=== PATIENT | male | born 1980 | race Caucasian/White ===

== ENCOUNTER → 2019-03-10 | Outpatient (CLI) | payer OTHER ==
--- NOTE | 2019-03-10 10:48 | US ---
EXAMINATION TYPE: US scrotum with doppler. Grayscale and color Doppler Duplex imaging performed of chelsy pritchett scrotum. DATE OF EXAM: 03/10/2019 COMPARISON: 10/05/2013 CLINICAL HISTORY: N50.9 Disorder of male genital organs, unspecified. Rt teste palpable- patient stat es it has been getting smaller. EXAM MEASUREMENTS: TESTICLES: Right Testicle: 4.3 x 3.0 x 2.6 cm Left Testicle: 3.7 x 2.7 x 2.5 cm EPIDIDYMIS HEAD: Right Epididymis: 1.0 x 1.6 x 1.2 cm Left Epididymis: 1.1 x 1.2 x 0.8 cm Doppler performed to assess for testicular vascularity; good bilateral color flow and waveforms are s een. There is no evidence of testicular torsion. Presence of hydroceles: Bilateral Presence of varicoceles: no Bilateral epididymal cysts seen in head. Right - 0.5 x 0.4 x 0.4 cm. Left - 0.4 x 0.4 x 0.4 cm. IMPRESSION: 1. Redemonstration of bilateral simple appearing benign epididymal cysts as seen on the exam of 2013. 2. Trace bilateral hydroceles also appearing simple.
== END ==
LOC: RADUSWWP 08:53
PROVIDERS: ATTEND Family Medicine
DX: N50.3 Cyst of epididymis (principal)
CPT/HCPCS: 76870; 93975

== ENCOUNTER 2019-03-16 08:09 | Day surgery (SDC) | payer OTHER ==
[2019-03-14 10:54] VITALS: BMI 29.8
[~2019-03-16 08:09] MED LIST: LIDOCAINE 1% 20 ML VIAL (10MG/ML) FOR IV START INTRADERMA PRN
[2019-03-16 08:24] VITALS: TEMP 97.4
[2019-03-16] MEDS: LACTATED RINGERS 1,000 ML IV SCH ×2 (08:30→09:00)
[2019-03-16] MEDS ORDERED: MIDAZOLAM 2 MG/2 ML VIAL ONE (09:02)
[2019-03-16] MEDS ORDERED: PROPOFOL 10 MG/ML 20 ML VIAL IV ONE (09:02)
[2019-03-16] MEDS ORDERED: fentaNYL (PF) 50 MCG/ML 2 ML AMP ONE (09:02)
--- NOTE | 2019-03-16 09:29 | P.PCN ---
Date of Procedure: 03/16/19 Description of Procedure: BRIEF HISTORY: 38-year-old male who presents for outpatient EGD. The patient reports intermittent episodes of dysphagia occurring over the past year. He reports that when episodes occur usually drink a lot of water to help the food move through. On occasion he has been unable to have a walker improve his symptoms of a sensation of food at the sternal notch and reports that he is required Heimlich maneuver on occasion secondary to this. He denies any reflux, morning nausea or globus sensation. He does report seasonal ALLERGIES, but denies history of asthma. PROCEDURE PERFORMED: Esophagogastroduodenoscopy with biopsy. PREOPERATIVE DIAGNOSIS: Esophageal dysphagia. ESTIMATED BLOOD LOSS: Minimal. IV sedation per anesthesia. PROCEDURE: After informed consent was obtained, the patient was brought into the endoscopy unit. IV sedation was administered by Anesthesia under continuous monitoring. Initially the Olympus GIF-190 video endoscope was inserted into the mouth. Esophagus intubated without any difficulty. It was gradually advanced into the stomach and duodenum and carefully examined. The bulb and the second part of the duodenum appeared normal, with biopsies at. The scope at this time was withdrawn to the stomach, adequately insufflated with air, and upon careful examination, mucosa of the antrum, body, cardia and the fundus appeared grossly normal except for some mild scattered erythema in the antrum and body suggestive of mild gastritis with biopsies taken. A small hiatal hernia was noted. The scope was then withdrawn into the esophagus. The GE junction was located at 43 cm from the incisors with biopsies. The esophagus appeared normal, with mid esophageal biopsies taken in the setting of esophageal dysphagia. There were no erosions or ulcerations seen and the patient tolerated the procedure well. IMPRESSION: 1. Mild gastritis antrum and body, biopsied. 2. Duodenal biopsies. GE junction biopsies. Mid esophageal biopsies. RECOMMENDATIONS: The findings of this examination were discussed with the patient and his . Await pathology from biopsies. Further recommendations pending findings from biopsies.
[2019-03-16 10:10] VITALS: BP 127/82; PULSE 57; RESP 16
== END 2019-03-16 10:21 | disposition home or self-care (01) ==
LOC: ORWHC2ENDO 08:09
PROVIDERS: ATTEND Internal Medicine
DX: K29.50 Unspecified chronic gastritis without bleeding (principal); K20.9 Esophagitis, unspecified; K44.9 Diaphragmatic hernia without obstruction or gangrene; Z88.0 Allergy status to penicillin; Z88.5 Allergy status to narcotic agent
CPT/HCPCS: 88305; 43239; J2250; J3010; J2704

== ENCOUNTER 2019-10-22 14:45 | Emergency (ER) | payer OTHER ==
[2019-10-22 14:53] VITALS: PULSE 77; RESP 18; TEMP 98.3
--- NOTE | 2019-10-22 15:46 | ED ---
Anxiety HPI - General Chief Complaint: Anxiety Stated Complaint: Anxiety Time Seen by Provider: 10/22/19 14:53 Source: patient Mode of arrival: EMS - History of Present Illness Initial Comments: Patient is a 39-year-old male presenting to emergency Department with chief complaint of a panic attack. Patient states he's had occasional panic attacks over the last 10 years. Patient states this panic attack is not any different from his other ones. However, he states over the last month his developed 5 which is not typical for him. Denies any specific triggers for acute anxiety attacks. At this time, the patient is not complaining of anything. States the most recent panic attack occurred earlier today that lasted for approximately 8 minutes. Patient reports immediately ran to his blood pressure cough which gradually raise his blood pressure which exacerbated his anxiety. Patient does not take any medication for his anxiety. No history of depression or anxiety. She states she is healthy overall. Not a smoker. No history of hypertension or hypercholesterolemia. Patient had a previous cardiac workup due to the anxiety which was unremarkable. - Related Data Home Medications: Home Medications Medication Instructions Recorded Confirmed No Known Home Medications 03/14/19 03/16/19 Allergies/Adverse Reactions: Allergies Allergy/AdvReac Type Severity Reaction Status Date / Time Penicillins Allergy Rash/Hives Verified 10/22/19 14:48 Review of Systems ROS Statement: Those systems with pertinent positive or pertinent negative responses have been documented in the HPI. ROS Other: All systems not noted in ROS Statement are negative. Past Medical History Additional Past Medical History / Comment(s): states "freq chokes on food",states "b/p runs high sometimes" History of Any Multi-Drug Resistant Organisms: None Reported Past Surgical History: Orthopedic Surgery Additional Past Surgical History / Comment(s): rt shoulder,knee procedure,EGD Past Anesthesia/Blood Transfusion Reactions: No Reported Reaction Past Psychological History: No Psychological Hx Reported Smoking Status: Former smoker Past Alcohol Use History: None Reported, Daily Past Drug Use History: Marijuana - Past Family History Mother Family Medical History: No Reported History General Exam Limitations: no limitations General appearance: alert, in no apparent distress Head exam: Present: atraumatic, normocephalic, normal inspection Eye exam: Present: normal appearance, PERRL Pupils: Present: normal accommodation ENT exam: Present: normal exam, mucous membranes moist Neck exam: Present: normal inspection, full ROM Respiratory exam: Present: normal lung sounds bilaterally Cardiovascular Exam: Present: regular rate, normal rhythm, normal heart sounds Extremities exam: Present: normal inspection, full ROM Back exam: Present: normal inspection, full ROM Neurological exam: Present: alert, oriented X3, normal gait Psychiatric exam: Present: normal affect, normal mood Skin exam: Present: warm, dry, intact, normal color Course Vital Signs 10/22/19 14:48 Temperature 98.3 F Pulse Rate 77 Respiratory 18 Rate Blood Pressure 153/108 O2 Sat by Pulse 98 Oximetry Medical Decision Making - Medical Decision Making patient a 39-year-old male presenting to emergency Department with a chief complaint of acute anxiety. Patient has no history of anxiety or depression. Patient has had panic attacks before and this feels exactly the same, however over the last month he has had 5 of them. Patient to previous full cardiac workup because of the anxiety which was unremarkable. Currently patient has no complaints. Physical examination is unremarkable. I offered patient appears to evaluation, he declined. I offered him angiolytics, he declined. States that he would rather speak with his primary care about this. Strict return para meters were thoroughly discussed with patient was understanding and agreeable. QUESTIONS answered. Case discussed with physician. Disposition Clinical Impression: Acute anxiety Disposition: HOME SELF-CARE Condition: Stable Instructions (If sedation given, give patient instructions): Generalized Anxiety Disorder (ED) Additional Instructions: Follow-up with primary care. Return to emergency department if symptoms worsen. Is patient prescribed a controlled substance at d/c from ED?: No Referrals: Niurka Amador MD [Primary Care Provider] - 1-2 days Time of Disposition: 15:46
[2019-10-22 16:00] VITALS: BP 148/95
== END 2019-10-22 15:55 | disposition home or self-care (01) ==
LOC: EC 14:45
DX: F41.9 Anxiety disorder, unspecified (principal); Z88.0 Allergy status to penicillin; Z87.891 Personal history of nicotine dependence
CPT/HCPCS: 99283

== ENCOUNTER → 2020-10-18 | Outpatient (CLI) | payer OTHER ==
--- NOTE | 2020-10-18 12:09 | MR ---
EXAMINATION TYPE: MR shoulder LT wo con DATE OF EXAM: 10/18/2020 COMPARISON: None HISTORY: Lt shoulder pain TECHNIQUE: Multiplanar, multisequence imaging of the shoulder is performed without contrast. FINDINGS: Rotator Cuff: There is some increased signal within the rotator cuff which is mildly thickened. Acromioclavicular Joint: Some arthropathy changes present causing mass effect on the musculotendinous junction of supraspinatus Glenohumeral Joint: Intact Labrum: The labrum appears grossly intact given limitation of non-arthrogram study, suspect a sublabr al foramen is present. Biceps Tendon: The long head of biceps is in normal location within bicipital groove. T2 bright focus present along the long head of the biceps tendon on axial image #7 measures 4 mm and shows a questio nable mass effect may represent fluid, small ganglion cyst is not excluded. Bone marrow signal: No focal abnormal marrow signal is appreciated. Other: There is some fluid signal present in the subacromial subdeltoid bursa. IMPRESSION: No evident rotator cuff tear, some tendinosis is suspected. Indeterminate signal along the long head of biceps tendon as described. Acromioclavicular joint arthropathy.
== END | disposition home or self-care (01) ==
LOC: RADMRIMAIN 08:39
DX: R93.7 Abnormal findings on diagnostic imaging of other parts of musculoskeletal system (principal); M12.812 Other specific arthropathies, not elsewhere classified, left shoulder

== ENCOUNTER 2023-04-01 22:36 | Emergency (ER) | payer OTHER ==
[2023-04-01 22:53] VITALS: RESP 16
[2023-04-02] MEDS ORDERED: methylPREDNISolone SOD SUCCI 125 MG/2 ML VIAL IM ONE (01:27)
--- NOTE | 2023-04-02 01:30 | ED ---
Extremity Problem HPI - General Chief complaint: Extremity Problem,Nontraumatic Stated complaint: Gout Time Seen by Provider: 04/02/23 00:56 Source: patient Mode of arrival: ambulatory Limitations: no limitations - History of Present Illness Initial comments: 42-year-old male with a past medical history significant for gout presents to ED with a chief complaint of gout. Patient states that he has a Flare of his left first toe. States that he saw his wiring inspector today who instructed him to take 2 of colchicine. Despite this has not noticed any improvement. Also notes recent use of ibuprofen. Despite ibuprofen use notes still continuous pain. Denies fever. No other complaints. - Related Data Previous Rx's Medication Instructions Recorded Cyclobenzaprine [Flexeril] 10 mg PO HS PRN #10 tab 10/20/22 methylPREDNISolone Dose Pack 4 mg PO DIRECTED #21 tab 04/02/23 [Medrol Dose Pack] Allergies Allergy/AdvReac Type Severity Reaction Status Date / Time codeine Allergy Nausea & Verified 04/01/23 22:47 Vomiting Penicillins Allergy Rash/Hives Verified 04/01/23 22:47 Review of Systems ROS Statement: Those systems with pertinent positive or pertinent negative responses have been documented in the HPI. ROS Other: All systems not noted in ROS Statement are negative. Past Medical History Additional Past Medical History / Comment(s): states "freq chokes on food",states "b/p runs high sometimes" History of Any Multi-Drug Resistant Organisms: None Reported Past Surgical History: Orthopedic Surgery Additional Past Surgical History / Comment(s): rt shoulder,knee procedure,EGD Past Anesthesia/Blood Transfusion Reactions: No Reported Reaction Past Psychological History: No Psychological Hx Reported Smoking Status: Never smoker Past Alcohol Use History: Occasional Past Drug Use History: Marijuana - Past Family History Mother Family Medical History: No Reported History General Exam Limitations: no limitations General appearance: alert, in no apparent distress Respiratory exam: Present: normal lung sounds bilaterally Cardiovascular Exam: Present: regular rate, normal rhythm GI/Abdominal exam: Present: soft Extremities exam: Present: other (Proximal to left first MTP warmth, erythema, swelling without tophus.) Neurological exam: Present: alert, oriented X3 Skin exam: Present: warm, dry Course Vital Signs 04/01/23 22:48 Temperature 97.6 F Pulse Rate 70 Respiratory 16 Rate Blood Pressure 165/89 O2 Sat by Pulse 98 Oximetry Medical Decision Making - Medical Decision Making Was pt. sent in by a medical professional or institution (ANSELMO Lopez, INSURANCE ACCOUNT ASSISTANT, urgent care, hospital, or assisted...) When possible be specific @ -No Did you speak to anyone other than the patient for history (EMS, parent, family, police, friend...)? What history was obtained from this source @ -No Did you review nursing and triage notes (agree or disagree)? Why? @ -I reviewed and agree with nursing and triage notes Were old charts reviewed (outside hosp., previous admission, EMS record, old EKG, old radiological studies, urgent care reports/EKG's, assisted records)? Report findings @ -No old charts were reviewed Differential Diagnosis (chest pain, altered mental status, abdominal pain women, abdominal pain men, vaginal bleeding, weakness, fever, dyspnea, syncope, headache, dizziness, GI bleed, back pain, seizure, CVA, palpatations, mental health, musculoskeletal)? @ -Gout, pseudogout, cellulitis. This is not meant to be an all-inclusive list. EKG interpreted by me (3pts min.). @ -None X-rays interpreted by me (1pt min.). @ -None done CT interpreted by me (1pt min.). @ -None done U/S interpreted by me (1pt. min.). @ -None done What testing was considered but not performed or refused? (CT, X-rays, U/S, labs)? Why? @ -None What meds were considered but not given or refused? Why? @ -None Did you discuss the management of the patient with other professionals (professionals i.e. ANSELMO Lopez, INSURANCE ACCOUNT ASSISTANT, lab, RT, psych nurse, social media marketing specialist, gate services supervisor, teacher, commanding officer motorized squad, case management social worker)? Give summary @ -No Was smoking cessation discussed for >3mins.? @ -No Was critical care preformed (if so, how long)? @ -No Were there social determinants of health that impacted care today? How? (Homelessness, low income, unemployed, alcoholism, drug addiction, transportation, low edu. Level, literacy, decrease access to med. care, group home, rehab)? @ -No Was there de-escalation of care discussed even if they declined (Discuss DNR or withdrawal of care, Hospice)? DNR status @ -No What co-morbidities impacted this encounter? (DM, HTN, Smoking, COPD, CAD, Cancer, CVA, ARF, Chemo, Hep., AIDS, mental health diagnosis, sleep apnea, morbid obesity)? @ -None Was patient admitted / discharged? Hospital course, mention meds given and route, prescriptions, significant lab abnormalities, going to OR and other pertinent info. @ -Discharge. Exam consistent with gout. Patient afebrile. Does not appear to be cellulitis. Provided Solu-Medrol injection here. Charged in stable condition. Provided medrol dose pack. Discussed return precautions with patient who verbalizes agreement. Undiagnosed new problem with uncertain prognosis? @ -No Drug Therapy requiring intensive monitoring for toxicity (Heparin, Nitro, Insulin, Cardizem)? @ -No Were any procedures done? @ -No Diagnosis/symptom? @ -Gout Acute, or Chronic, or Acute on Chronic? @ -Acute on chronic Uncomplicated (without systemic symptoms) or Complicated (systemic symptoms)? @ -Uncomplicated Side effects of treatment? @ -No Exacerbation, Progression, or Severe Exacerbation? @ -No Poses a threat to life or bodily function? How? (Chest pain, [place], [place], pneumonia, PE, COPD, DKA, ARF, appy, cholecystitis, CVA, Diverticulitis, Homicidal, Suicidal, threat to staff... and all critical care pts) @ -No Disposition Clinical Impression: Gout Disposition: HOME SELF-CARE Condition: Good Instructions (If sedation given, give patient instructions): Low Purine Diet (ED), Gout (ED) Prescriptions: methylPREDNISolone Dose Pack [Medrol Dose Pack] 4 mg PO DIRECTED #21 tab Is patient prescribed a controlled substance at d/c from ED?: No Referrals: Niurka Amador MD [Primary Care Provider] - 1-2 days Time of Disposition: 01:34
[2023-04-02 01:52] VITALS: BP 156/83; PULSE 82; TEMP 98.1
== END 2023-04-02 01:51 | disposition home or self-care (01) ==
LOC: EC 22:36
DX: M10.9 Gout, unspecified (principal); F12.90 Cannabis use, unspecified, uncomplicated; Z88.5 Allergy status to narcotic agent; Z88.0 Allergy status to penicillin
CPT/HCPCS: 99283; 96372; J2930

== ENCOUNTER → 2023-08-02 | Outpatient (CLI) | payer OTHER ==
--- NOTE | 2023-08-02 07:52 | CT ---
EXAMINATION TYPE: CT heart w calcium score DATE OF EXAM: 08/02/2023 COMPARISON: None HISTORY: Screening for cardiovascular disorder. 213.9 CT DLP: 98.9 mGycm Automated exposure control for dose reduction was used. CT CALCIUM SCORING Coronary calcium is a marker for plaque (fatty deposits) in a blood vessel or atherosclerosis (harden ing of the arteries). The presence and amount of calcium detected in a coronary artery by the CT sca n, indicates the presence and amount of atherosclerotic plaque. These calcium deposits appear years before the development of heart disease symptoms such as chest pain and shortness of breath. A calcium score is computed for each of the coronary arteries based upon the volume and density of th e calcium deposits. This can be referred to as your calcified plaque burden. It does not correspond directly to the percentage of narrowing in the artery but does correlate with the severity of the un derlying coronary atherosclerosis. PROCEDURE TECHNIQUE - Prospective Gating was used. Slice thickness: 3mm. Density threshold (HU): 130, Pixel threshold: 3, Algorithm: discrete. RESULTS Region: LM Calcium Score ([place]): 0 Volume (mm3): 0 Mass (g): 0 Region: RCA Calcium Score ([place]): 0.44 Volume (mm3): 1.31 Mass (g): 0.44 Region: LAD Calcium Score ([place]): 0 Volume (mm3): 0 Mass (g): 0 Region: CX Calcium Score ([place]): 0 Volume (mm3): 0 Mass (g): 0 Region: PDA Calcium Score ([place]): 0 Volume (mm3): 0 Mass (g): 0 Total: Calcium Score ([place]): 0.44 Volume (mm3): 1.31 Mass (g): 0.44 TOTAL CALCIUM SCORE: 0.44 IMPRESSION: Calcium Score: 0.44 Implication: Minimal identifiable plaque. Risk of Coronary Artery Disease: Very unlikely, less than 10%. CALCIUM SCORE IMPLICATION RISK OF C ORONARY ARTERY DISEASE 0 No identifiable plaque Very low, generally less than 5% 1-10 Minimal identifiable plaque Very unlikely, less than 10% 11-100 Definite, at least mild atherosclerotic plaque Mild or m inimal coronary narrowings likely 101-400 Definite, at least moderate atherosclerotic plaque Mild coronary ar manuel disease highly likely, significant narrowing possible 401 or Higher Extensive atherosclerotic plaque High lik elihood of at least one significant coronary narrowing
== END | disposition home or self-care (01) ==
LOC: RADCTMAIN 06:58
PROVIDERS: ATTEND Family Medicine
DX: Z13.6 Encounter for screening for cardiovascular disorders (principal); I25.10 Atherosclerotic heart disease of native coronary artery without angina pectoris
CPT/HCPCS: 75571

== ENCOUNTER 2024-01-23 21:36 | Emergency (ER) | payer OTHER ==
[2024-01-23] MEDS: FAMOTIDINE 20 MG/2 ML VIAL IV STA (21:58)
[2024-01-23] MEDS: diphenhydrAMINE 50 MG/ML 1 ML VIAL IVP STA (21:59)
[2024-01-23] MEDS: DIPH,PERTUS(ACELL)TETVAC-LF 0.5 ML VIAL IM ONE (22:00)
[2024-01-23] MEDS: SODIUM CHLORIDE 0.9% 1,000 ML IV STA (22:01)
[2024-01-23] MEDS: methylPREDNISolone SOD SUCCI 125 MG/2 ML VIAL IV STA (22:07)
--- NOTE | 2024-01-23 22:11 | ED ---
General Adult HPI - General Chief complaint: Syncope Stated complaint: Syncope Time Seen by Provider: 01/23/24 21:41 Source: patient, family, EMS, RN notes reviewed Mode of arrival: EMS - History of Present Illness Initial comments: 43-year-old male who had a near syncopal episode tonight prior to being brought in by EMS. 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 He felt lightheaded dizzy he did not lose consciousness but he was found down in his yard. Paramedics arrived and found him to be somewhat hypotensive 90/47 he was given IV fluids and after 800 cc still had a blood pressure 90/50. He was initially somewhat short of breath feels better at this time. He states he felt very hot and lightheaded prior to this episode. He has never had a bee sting reaction before either he states. Additionally he was apparently consumed alcohol yesterday and does admit that drinking much in the way of fluids and was working outside all day. - Related Data Previous Rx's Medication Instructions Recorded Cyclobenzaprine [Flexeril] 10 mg PO HS PRN #10 tab 10/20/22 methylPREDNISolone Dose Pack 4 mg PO DIRECTED #21 tab 04/02/23 [Medrol Dose Pack] EPINEPHrine (Auto Inject) [Epipen] 0.3 mg IM ONCE PRN #2 each 01/23/24 methylPREDNISolone Dose Pack 4 mg PO DIRECTED #21 tab 01/23/24 [Medrol Dose Pack] Allergies Allergy/AdvReac Type Severity Reaction Status Date / Time codeine Allergy Nausea & Verified 04/01/23 22:47 Vomiting Penicillins Allergy Rash/Hives Verified 04/01/23 22:47 Review of Systems ROS Statement: Those systems with pertinent positive or pertinent negative responses have been documented in the HPI. ROS Other: All systems not noted in ROS Statement are negative. Past Medical History Additional Past Medical History / Comment(s): states "freq chokes on food",states "b/p runs high sometimes" History of Any Multi-Drug Resistant Organisms: None Reported Past Surgical History: Orthopedic Surgery Additional Past Surgical History / Comment(s): rt shoulder,knee procedure,EGD Past Anesthesia/Blood Transfusion Reactions: No Reported Reaction Past Psychological History: No Psychological Hx Reported Smoking Status: Former smoker Past Alcohol Use History: Occasional Past Drug Use History: Marijuana - Past Family History Mother Family Medical History: No Reported History General Exam - General Exam Comments Initial Comments: This is a well-developed well-nourished awake alert oriented x 4 male General appearance: alert, anxious Head exam: Present: atraumatic, normocephalic, normal inspection Eye exam: Present: conjunctival injection ENT exam: Present: other (Mild hyperemia to the posterior pharynx no edema.) Neck exam: Present: normal inspection, full ROM, other (No stridor JVD or bruits). Absent: tenderness, meningismus, lymphadenopathy Respiratory exam: Present: normal lung sounds bilaterally. Absent: respiratory distress, wheezes, rales, rhonchi, stridor Cardiovascular Exam: Present: regular rate, normal rhythm, normal heart sounds. Absent: systolic murmur, diastolic murmur, rubs, gallop, clicks GI/Abdominal exam: Present: soft, normal bowel sounds. Absent: distended, tenderness, guarding, rebound, rigid Rectal exam: Present: deferred Extremities exam: Present: full ROM, normal capillary refill, other (Erythema seen to the medial aspect of the upper extremity at the bee sting site no foreign body seen.). Absent: tenderness, pedal edema, joint swelling, calf tenderness Back exam: Present: normal inspection Neurological exam: Present: alert, oriented X3, CN II-XII intact Psychiatric exam: Present: normal affect, anxious Skin exam: Present: warm, dry, intact, erythema (Erythema seen about the face and torso extremities.). Absent: rash Course Vital Signs 01/23/24 01/23/24 21:37 21:45 Temperature 97.2 F L Pulse Rate 99 Respiratory 16 Rate Blood Pressure 128/105 138/97 O2 Sat by Pulse 96 Oximetry Medical Decision Making - Medical Decision Making Reevaluation patient finds he is much improved at this time no dyspnea no throat tightness his color has improved he is feeling much better this is confirmed by his who has been observing him throughout his stay in the emergency department. Patient has appeared with had a bee sting reaction demonstrates some dehydration. This the patient does have a history of hypomagnesemia he is does take magnesium supplements at home. We did discuss the need for histamine 1 and histamine 2 blockers as well as steroids the patient will be sent home with an EpiPen prescription. Did discuss cool compresses to the bee sting area should it become pruritic. Was pt. sent in by a medical professional or institution (, PA, HEAVY MACHINERY OPERATOR, urgent care, hospital, or skilled nursing...) When possible be specific @ -No Did you speak to anyone other than the patient for history (EMS, parent, family, police, friend...)? What history was obtained from this source @ -Paramedics upon arrival also the patient's Did you review nursing and triage notes (agree or disagree)? Why? @ -I reviewed and agree with nursing and triage notes Were old charts reviewed (outside hosp., previous admission, EMS record, old EKG, old radiological studies, urgent care reports/EKG's, skilled nursing records)? Report findings @ -No old charts were reviewed Differential Diagnosis (chest pain, altered mental status, abdominal pain women, abdominal pain men, vaginal bleeding, weakness, fever, dyspnea, syncope, headache, dizziness, GI bleed, back pain, seizure, CVA, palpatations, mental health, musculoskeletal)? @ -Syncope, dehydration, bee sting reaction EKG interpreted by me (3pts min.). @ -As above EKG interpreted by me sinus rhythm of 92 NC interval 170 QRS duration 95 QT/QTc 336/[address]-T wave changes X-rays interpreted by me (1pt min.). @ -'s x-ray interpreted by me negative for acute process] CT interpreted by me (1pt min.). @ -None done U/S interpreted by me (1pt. min.). @ -None done What testing was considered but not performed or refused? (CT, X-rays, U/S, labs)? Why? @ -None What meds were considered but not given or refused? Why? @ -None Did you discuss the management of the patient with other professionals (professionals i.e. , PA, HEAVY MACHINERY OPERATOR, lab, RT, psych nurse, oncology social worker, cad administrator, teacher, youth officer, pillowcase cleaner)? Give summary @ -No Was smoking cessation discussed for >3mins.? @ -No Was critical care preformed (if so, how long)? @ -31 minutes Were there social determinants of health that impacted care today? How? (Homelessness, low income, unemployed, alcoholism, drug addiction, transportation, low edu. Level, literacy, decrease access to med. care, prison, rehab)? @ -No Was there de-escalation of care discussed even if they declined (Discuss DNR or withdrawal of care, Hospice)? DNR status @ -No What co-morbidities impacted this encounter? (DM, HTN, Smoking, COPD, CAD, Cancer, CVA, ARF, Chemo, Hep., AIDS, mental health diagnosis, sleep apnea, morbid obesity)? @ -None Was patient admitted / discharged? Hospital course, mention meds given and route, prescriptions, significant lab abnormalities, going to OR and other pertinent info. @ -Hospital course was discharged with prescriptions for steroids and recommendations to mushroom picker H1 and H2 blockers also EpiPen prescription. Undiagnosed new problem with uncertain prognosis? @ -Obtain reaction Drug Therapy requiring intensive monitoring for toxicity (Heparin, Nitro, Insulin, Cardizem)? @ -No Were any procedures done? @ -No Diagnosis/symptom? @ -Near-syncope, bee sting reaction, anaphylaxis, dehydration, hypomagnesemia Acute, or Chronic, or Acute on Chronic? @ -Acute Uncomplicated (without systemic symptoms) or Complicated (systemic symptoms)? @ -Complicated Side effects of treatment? @ -No Exacerbation, Progression, or Severe Exacerbation? @ -No Poses a threat to life or bodily function? How? (Chest pain, USA, PA, pneumonia, PE, COPD, DKA, ARF, appy, cholecystitis, CVA, Diverticulitis, Homicidal, Suicidal, threat to staff... and all critical care pts) @ -Potential - Lab Data Result diagrams: 01/23/24 22:00 01/23/24 22:00 Lab Results 01/23/24 01/23/24 01/23/24 Range/Units 22:00 22:00 22:00 WBC 10.6 (3.8-10.6) k/uL RBC 4.48 (4.30-5.90) m/uL Hgb 15.6 (13.0-17.5) gm/dL Hct 44.0 (39.0-53.0) % MCV 98.2 (80.0-100.0) fL MCH 34.9 (25.0-35.0) pg MCHC 35.5 (31.0-37.0) g/dL RDW 12.4 (11.5-15.5) % Plt Count 172 (150-450) k/uL MPV 8.9 Neutrophils % 78 % Lymphocytes % 15 % Monocytes % 3 % Eosinophils % 3 % Basophils % 0 % Neutrophils # 8.3 H (1.3-7.7) k/uL Lymphocytes # 1.6 (1.0-4.8) k/uL Monocytes # 0.3 (0-1.0) k/uL Eosinophils # 0.3 (0-0.7) k/uL Basophils # 0.0 (0-0.2) k/uL Sodium 139 (137-145) mmol/L Potassium 4.1 (3.5-5.1) mmol/L Chloride 106 (98-107) mmol/L Carbon Dioxide 22 (22-30) mmol/L Anion Gap 11 mmol/L BUN 21 H (9-20) mg/dL Creatinine 1.17 (0.66-1.25) mg/dL Est GFR (CKD-EPI)AfAm 89 (>60 ml/min/1.73 sqM) Est GFR (CKD-EPI)NonAf 77 (>60 ml/min/1.73 sqM) Glucose 163 H (74-99) mg/dL Calcium 8.7 (8.4-10.2) mg/dL Magnesium 1.5 L (1.6-2.3) mg/dL Total Bilirubin 0.8 (0.2-1.3) mg/dL AST 31 (17-59) U/L ALT 38 (4-49) U/L Alkaline Phosphatase 73 (38-126) U/L Creatine Kinase 65 (55-170) U/L Troponin I <0.012 (0.000-0.034) ng/mL Total Protein 6.8 (6.3-8.2) g/dL Albumin 4.1 (3.5-5.0) g/dL Lipase 247 (23-300) U/L Serum Alcohol <10 mg/dL Critical Care Time Critical Care Time: Yes Total Critical Care Time: 31 Disposition Clinical Impression: Anaphylaxis, Systemic reaction to bee sting, Hypomagnesemia, Near syncope, Dehydration Disposition: HOME SELF-CARE Condition: Good Instructions (If sedation given, give patient instructions): Insect Bite or Sting (ED), Anaphylaxis (ED), Hypomagnesemia (ED), Dehydration (ED) Additional Instructions: [id number] Benadryl and Pepcid cool compresses to the affected area Prescriptions: EPINEPHrine (Auto Inject) [Epipen] 0.3 mg IM ONCE PRN #2 each PRN Reason: Anaphylaxis methylPREDNISolone Dose Pack [Medrol Dose Pack] 4 mg PO DIRECTED #21 tab Is patient prescribed a controlled substance at d/c from ED?: No Referrals: Niurka Amador MD [Primary Care Provider] - 1-2 days Time of Disposition: 23:53 Decision Date: 01/23/24 Decision Time: 23:53
[2024-01-23 22:31] LABS: ALT 38 U/L (4-49); AST 31 U/L (17-59); African American GFR (CKD) 89 (>60 ml/min/1.73 sqM); Albumin 4.1 g/dL (3.5-5.0); Alcohol <10 mg/dL; Alkaline Phosphatase 73 U/L (38-126); Anion Gap 11 mmol/L; Blood Urea Nitrogen 21 mg/dL (9-20); Calcium 8.7 mg/dL (8.4-10.2); Carbon Dioxide 22 mmol/L (22-30); Chloride 106 mmol/L (98-107); Creatine Kinase 65 U/L (55-170); Glucose 163 mg/dL (74-99); Lipase 247 U/L (23-300); Magnesium 1.5 mg/dL (1.6-2.3); Non-African American GFR(CKD) 77 (>60 ml/min/1.73 sqM); Potassium 4.1 mmol/L (3.5-5.1); Sodium 139 mmol/L (137-145); Total Bilirubin 0.8 mg/dL (0.2-1.3); Total Protein 6.8 g/dL (6.3-8.2)
[2024-01-23 22:49] LABS: Basophils % (A) 0 %; Eosinophils # (A) 0.3 k/uL (0-0.7); Eosinophils % (A) 3 %; HGB 15.6 gm/dL (13.0-17.5); Lymphocytes # (A) 1.6 k/uL (1.0-4.8); Lymphocytes % (A) 15 %; MCH 34.9 pg (25.0-35.0); MCHC 35.5 g/dL (31.0-37.0); MCV 98.2 fL (80.0-100.0); Mean Platelet Volume 8.9; Monocytes # (A) 0.3 k/uL (0-1.0); Monocytes % (A) 3 %; Neutrophils # (A) 8.3 k/uL (1.3-7.7); Neutrophils % (A) 78 %; Platelet Count 172 k/uL (150-450); RBC 4.48 m/uL (4.30-5.90); RDW 12.4 % (11.5-15.5); WBC 10.6 k/uL (3.8-10.6)
--- NOTE | 2024-01-23 22:50 | XR ---
EXAM: XR Chest, 2 Views CLINICAL HISTORY: ITS.REASON XR Reason: dyspnea TECHNIQUE: Frontal and lateral views of the chest. COMPARISON: No relevant prior studies available. FINDINGS: Lungs: Unremarkable. No consolidation. Pleural space: Unremarkable. No pneumothorax. Heart: Unremarkable. No cardiomegaly. Mediastinum: Unremarkable. Normal mediastinal contour. Bones/joints: Unremarkable. No acute fracture. IMPRESSION: No consolidation.
[2024-01-23] MEDS: SODIUM CHLORIDE 0.9% 500 ML 500 ML IV STA (23:29)
[2024-01-24 00:11] VITALS: BP 123/88; PULSE 91; RESP 18; TEMP 98.1
== END 2024-01-23 23:58 | disposition home or self-care (01) ==
LOC: EC 21:36
DX: T63.441A Toxic effect of venom of bees, accidental (unintentional), initial encounter (principal); T78.2XXA Anaphylactic shock, unspecified, initial encounter; E83.42 Hypomagnesemia; E86.0 Dehydration; R55 Syncope and collapse; F12.90 Cannabis use, unspecified, uncomplicated; Z87.891 Personal history of nicotine dependence; Z88.5 Allergy status to narcotic agent; Z88.0 Allergy status to penicillin
CPT/HCPCS: 36415; 93005; 80053; 82550; 83690; 83735; 84484; 85025; 80320; 71046; 99285; 96374; 96375 ×2; 96361 ×2; J1200; J3490; J2919

== ENCOUNTER → 2025-01-10 | Day surgery (SDC) | payer OTHER ==
[2025-01-08 13:37] VITALS: BMI 31.1
[~2025-01-10] MED LIST changes: +LIDOCAINE 1% (10MG/ML) FOR IV START INTRADERMA PRN; -LIDOCAINE 1% 20 ML VIAL (10MG/ML) FOR IV START INTRADERMA PRN; +LIDOCAINE 1% INJ 10MG/ML (20 ML MDV) ONE; +PROPOFOL 10 MG/ML 20 ML VIAL IV ONE
[2025-01-10] MEDS: IV FLUID CONTINUATION 1,000 ML IV ONE (11:47)
[2025-01-10 11:56] VITALS: RESP 16; TEMP 97.4
[2025-01-10] MEDS: LACTATED RINGERS 1,000 ML IV SCH (11:58)
--- NOTE | 2025-01-10 12:35 | P.PCN ---
Date of Procedure: 01/10/25 Procedure(s) Performed: BRIEF HISTORY: Patient is a 44-year-old, pleasant, white male scheduled for an upper endoscopy as part of evaluation of . History of GERD/intermittent dysphagia to solids for the last several years duration. Usually has a symptoms once or twice a week and often with bread and meat. Lately has been having chronic hoarseness of his voice.. PROCEDURE PERFORMED: Esophagogastroduodenoscopy with biopsy and dilation. PREOPERATIVE DIAGNOSIS: Intermittent dysphagia to solids and longstanding history of intermittent heartburn. IV sedation per anesthesia. PROCEDURE: After informed consent was obtained, the patient was brought into the endoscopy unit. IV sedation was administered by Anesthesia under continuous monitoring. Initially the Olympus GIF-140 video endoscope was inserted into the mouth. Esophagus intubated without any difficulty. It was gradually advanced into the stomach and duodenum and carefully examined. The bulb and the second part of the duodenum appeared normal. The scope at this time was withdrawn to the stomach, adequately insufflated with air, and upon careful examination, mucosa of the antrum, body, cardia and the fundus appeared normal. The scope was then withdrawn into the esophagus. The GE junction was located at 42 cm from the incisors. There was a distal esophageal stricture identified and this was dilated using 18 mm TTS balloon for 30 seconds. There was mucosal tear and oozing identified and hence further dilation was not performed. Mucosa of the mid and distal esophagus had thickened esophageal folds suspicious for eosinophilic esophagitis and multiple biopsies were done from this area. The rest of the esophagus appeared normal. There were no erosions or ulcerations seen and the patient tolerated the procedure well. IMPRESSION: 1. Distal esophageal stricture status post balloon dilation using 18 mm TTS balloon. 2. Thickened mid and distal esophageal folds with longitudinal ridges and furrows suspicious for eosinophilic esophagitis status post multiple biopsies. RECOMMENDATIONS: The findings of this examination were discussed with the patient as well as his family. He was advised to follow-up with the biopsy results. He will remain on clear liquids for 2 hours. Follow-up in the office in 2 weeks..
[2025-01-10 13:30] VITALS: BP 133/86; PULSE 59
== END ==
LOC: ORWHC2ENDO 10:43
PROVIDERS: ATTEND Internal Medicine Gastroenterology
DX: D72.10 Eosinophilia, unspecified (principal); K22.2 Esophageal obstruction; M10.9 Gout, unspecified; Z88.5 Allergy status to narcotic agent; Z88.0 Allergy status to penicillin; Z79.899 Other long term (current) drug therapy
CPT/HCPCS: 88305; 43239; 43249; J2003; J2704; C1726